=== PATIENT | female | born 1945 | race Caucasian/White ===

== ENCOUNTER 2017-02-07 07:58 | Inpatient (IN) ==
--- NOTE | 2017-02-06 21:21 | Discharge Summary ---
<Shanell Wagner E - Last Filed: 02/07/17 19:41> Date of Encounter: 02/07/17 - Discharge Diagnosis (1) Rotator cuff tear arthropathy of right shoulder Priority: Primary Status: Acute (2) Ulcerative colitis Priority: Secondary Status: Chronic Qualifiers: Ulcerative colitis location: unspecified ulcerative colitis location Digestive disease complication type: without complication Qualified Code(s): K51.90 - Ulcerative colitis, unspecified, without complications (3) Osteoporosis Priority: Secondary Status: Chronic Qualifiers: Osteoporosis type: unspecified Presence of current pathological fracture: unspecified Qualified Code(s): M81.0 - Age-related osteoporosis without current pathological fracture - Discharge Medications Prescriptions: HYDROmorphone [Dilaudid] 0.5 - 1 mg PO Q4HR PRN #20 tablet PRN Reason: Pain Ondansetron HCl 4 - 8 mg PO Q8HR PRN #20 tablet PRN Reason: Nausea And Vomiting Acetaminophen [Tylenol Arthritis] 650 mg PO Q4-6H PRN #20 tablet.er PRN Reason: Pain Home Medications: ALPRAZolam [Xanax 0.5 MG Tablet] 0.5 mg PO BID PRN 10/21/16 [History] Acetaminophen [Tylenol Arthritis] 1,300 mg PO DAILY PRN 10/21/16 [History] Alendronate Sodium [Fosamax] 70 mg PO FR 10/21/16 [History] Calcium Carbonate/Vitamin D3 [Calcium 500+D Tablet Chew] 1 each PO DAILY [History] Gabapentin [Neurontin] 300 mg PO BID 10/21/16 [History] Glucosamine HCl/MSM [Sm Glucosamine & MSM Tablet] 1 tab PO DAILY 10/21/16 [ History] Lactobacillus Acidophilus [Acidophilus Probiotic] 1 mg PO DAILY 10/21/16 [ History] Mesalamine [Lialda] 1.2 gm PO BID 10/21/16 [History] Zolpidem [Ambien] 10 mg PO HS PRN 10/21/16 [History] OxyCODONE Immed Rel [Roxicodone 5 MG] 5 - 10 mg PO Q6HR PRN #40 tablet 02/06/17 [Rx] Acetaminophen [Tylenol Arthritis] 650 mg PO Q4-6H PRN #20 tablet.er 02/07/17 [Rx ] HYDROmorphone [Dilaudid] 0.5 - 1 mg PO Q4HR PRN #20 tablet 02/07/17 [Rx] Ondansetron HCl 4 - 8 mg PO Q8HR PRN #20 tablet 02/07/17 [Rx] Allergies/Adverse Reactions: Allergies acetaminophen [From Vicodin] Adverse Reaction (Verified 02/07/17 08:54) Rash codeine Adverse Reaction (Verified 02/07/17 08:54) Nausea denosumab [From Prolia] Adverse Reaction (Verified 02/07/17 08:54) Chest Pain hydrocodone [From Vicodin] Adverse Reaction (Verified 02/07/17 08:54) Rash Oxycodone [From Percocet] Adverse Reaction (Verified 02/07/17 08:54) Nausea tramadol [From Ultram] Adverse Reaction (Verified 02/07/17 08:54) Nausea Primary care physician: Jere Vega, - Patient Status Disposition: Home, Self-Care Condition: Good - Discharge Instructions Follow Up With: Tri Ulloa PAC [Physician Composition Stone Applicator] - 02/17/17 1:45 pm Jere Vega MD [Primary Care Provider] - Additional Instructions: Discharge Instructions: Total Shoulder Please call [facility] ([phone]), your Primary Care Physician, or report to the Emergency Room if you have any of the following symptoms: Nausea, vomiting, fever greater that 101.5, swelling, chest pain, shortness of breath, increased pain/redness/drainage/odor for your incision site, numbness/ tingling, or any other concerning symptoms. ACTIVITY: Always keep your arm in the sling. Do not raise your arm away from your body. Do not use your arm to help with getting in or out of bed. No weight bearing permitted. Only perform those exercises given to you by your therapist. MEDICATIONS: Upon discharge resume your home medications. Take all the medications as prescribed. Take a stool softener if taking narcotic pain medications. Stool softeners are only effective if you drink enough fluids. Drink 6-8 glass of water or fluids a day, unless this is not allowed for another health problem. Despite using stool softeners, if you haven't had a bowel movement in 3 days, please switch to a gentle laxative. Gentle laxatives are sold over the counter. You should have a bowel movement within 24 hours, if not call the office. You will be discharged from the hospital with a prescription for pain medication. You are encouraged to decrease the use of narcotic pain medication as tolerated. Should you require a refill, please call the office. [facility] prescribes narcotic pain medication for only 4-6 weeks after surgery. If you require pain medication beyond this time period, you may be referred to your Primary Care Physician or to the Pain Clinic for further evaluation. Plan ahead for refills on pain medication as many narcotics either need to be picked up at the office or mailed. It is best to call 48-72 hours in advance of needing a prescription refill so you don't run out of medication. To help control the post-operative pain, you may take NSAIDs (Aleve,Advil, Motrin, Ibuprofen, Naprosyn) or Tylenol as prescribed on the bottle in addition to the pain medication. WOUND CARE: Leave the dressing on for 7-10 days. You may change the dressing if it becomes saturated greater than 50%. Do not get the dressing wet at anytime. Wash your hands with antibacterial soap, rinse and dry prior to any wound care. If you have alfonso the visiting nurse or rehab facility can remove the stapes 10-14 days after surgery and place steri-strips across the wound. Leave the steri-strips in place until they fall off on their own. You may let water from the shower run on top of the steri-strips. If you do not have a visiting nurse or rehab facility, you will need to return to the office at 10-14 days for the alfonso to be removed. If you have itching or redness around the dressing call the office. FOLLOW-UP: Please follow up with your surgeon in the orthopedic clinic, as scheduled - Hospital Course Hospital course: Ms. Tapia is a 72 year old female - Time Spent with Patient Total time spent providing and/or coordinating discharge services: <Slim Hill - Last Filed: 02/08/17 06:47> Date of Encounter: 02/08/17 Time of Encounter: 06:46 - Discharge Diagnosis (1) Rotator cuff tear arthropathy of right shoulder Priority: Primary Status: Acute (2) Ulcerative colitis Priority: Secondary Status: Chronic Qualifiers: Ulcerative colitis location: unspecified ulcerative colitis location Digestive disease complication type: without complication Qualified Code(s): K51.90 - Ulcerative colitis, unspecified, without complications (3) Osteoporosis Priority: Secondary Status: Chronic Qualifiers: Osteoporosis type: unspecified Presence of current pathological fracture: unspecified Qualified Code(s): M81.0 - Age-related osteoporosis without current pathological fracture (4) Status post total replacement of right shoulder Priority: Primary Status: Acute Primary care physician: Jere Vega, - Patient Status Functional capacity at discharge: uses cane/walker Overall status at discharge: patient is progressing back to baseline - Hospital Course Hospital course: Ms. Tapia is a 72 year old female Status post right total shoulder replacement. The patient had an uneventful postoperative course. They received antibiotics and physical therapy and were discharged in stable condition. There will follow-up in the office in 2 weeks. Patient had issues with medication due to multiple narcotic allergies - Time Spent with Patient Total time spent providing and/or coordinating discharge services:
--- NOTE | 2017-02-06 21:26 | Physician Discharge Referral ---
Home Health/Hosp Referral Info Transfer to: Home Health Attending Provider: Dr. Slim Hill - Diagnosis (1) Status post total replacement of right shoulder Priority: Primary Status: Acute (2) Rotator cuff tear arthropathy of right shoulder Priority: Secondary Status: Chronic (3) Ulcerative colitis Priority: Secondary Status: Chronic (4) Osteoporosis Priority: Secondary Status: Chronic - Respiratory Orders Smoking Cessation: Smoking cessation has been advised. For more information, call the [employer] Tobacco Quit Line at 8-446-YCHS-NOW. - Dressing/Wound Care Site: Right shoulder Type of Dressing/Treatments w/Frequency: Opsite placed. Keep dressing intact until first follow up appointment. If > 50% saturated,notify offfice, remove dressing and place appropriate dressing back in place. Dressing is water resistant, not water-proof. OK to shower, but do not get dressing wet. - Diet/Nutrition Diet/Nutrition Orders: Regular - Activity Activity Orders: Ambulate - Services Needed Following services are medically necessary services: Physical Therapy, Occupational Therapy Other Treatments: PT/OT. NWB to affected upper extremity. Follow Shoulder Precautions x 6 weeks. Stay in brace during activity and at night. Remove brace during exercises. ICE and elevate extremity frequently throughout the day. - Transfer Medications Prescriptions: HYDROmorphone [Dilaudid] 0.5 - 1 mg PO Q4HR PRN #20 tablet PRN Reason: Pain Ondansetron HCl 4 - 8 mg PO Q8HR PRN #20 tablet PRN Reason: Nausea And Vomiting Acetaminophen [Tylenol Arthritis] 650 mg PO Q4-6H PRN #20 tablet.er PRN Reason: Pain Home Medications: ALPRAZolam [Xanax 0.5 MG Tablet] 0.5 mg PO BID PRN 10/21/16 [History] Acetaminophen [Tylenol Arthritis] 1,300 mg PO DAILY PRN 10/21/16 [History] Alendronate Sodium [Fosamax] 70 mg PO FR 10/21/16 [History] Calcium Carbonate/Vitamin D3 [Calcium 500+D Tablet Chew] 1 each PO DAILY [History] Gabapentin [Neurontin] 300 mg PO BID 10/21/16 [History] Glucosamine HCl/MSM [Sm Glucosamine & MSM Tablet] 1 tab PO DAILY 10/21/16 [ History] Lactobacillus Acidophilus [Acidophilus Probiotic] 1 mg PO DAILY 10/21/16 [ History] Mesalamine [Lialda] 1.2 gm PO BID 10/21/16 [History] Zolpidem [Ambien] 10 mg PO HS PRN 10/21/16 [History] OxyCODONE Immed Rel [Roxicodone 5 MG] 5 - 10 mg PO Q6HR PRN #40 tablet 02/06/17 [Rx] Acetaminophen [Tylenol Arthritis] 650 mg PO Q4-6H PRN #20 tablet.er 02/07/17 [Rx ] HYDROmorphone [Dilaudid] 0.5 - 1 mg PO Q4HR PRN #20 tablet 02/07/17 [Rx] Ondansetron HCl 4 - 8 mg PO Q8HR PRN #20 tablet 02/07/17 [Rx] Allergies/Adverse Reactions: Allergies acetaminophen [From Vicodin] Adverse Reaction (Verified 02/07/17 08:54) Rash codeine Adverse Reaction (Verified 02/07/17 08:54) Nausea denosumab [From Prolia] Adverse Reaction (Verified 02/07/17 08:54) Chest Pain hydrocodone [From Vicodin] Adverse Reaction (Verified 02/07/17 08:54) Rash Oxycodone [From Percocet] Adverse Reaction (Verified 02/07/17 08:54) Nausea tramadol [From Ultram] Adverse Reaction (Verified 02/07/17 08:54) Nausea Certification: Further, I certify that my clinical findings support that this patient is homebound (i.e. absences from home require considerable and taxing effort and are for medical reasons or cheondoism services or infrequently or short duration when for other reasons) because: Homebound Reason: Post-surgery restriction and or conditions limit ability to leave home Attestation: My signature below is to certify that this patient is under my care and that I, or nurse practitioner, or physician senior office support assistant sosa working with me, has a face-to- face encounter with this patient.
[2017-02-07] MEDS ORDERED: Lidocaine -MPF 1% 2 ML VIAL ID ONE (08:12)
[2017-02-07] MEDS ORDERED: CeFAZolin Pre 2,000 MG/100 ML 2,000 MG/100 ML BAG IVPB ONE (08:12)
[2017-02-07] MEDS ORDERED: Ringers Solution, Lactated 1,000 ML IVC SCH ×2 (08:15→11:59)
--- NOTE | 2017-02-07 08:39 | History & Physical Report ---
Date of Encounter: 02/07/17 Time of Encounter: 08:39 24 Hour HP Update - Instructions Instructions: If the History and Physical is less than 30 days old and was completed prior to A.M. admission and or procedure and has NOT been updated on calendar day of procedure please complete this update prior to performing procedure. - Update Patient reports changes in Medical Condition: No Changes in examination, assessment, or condition: No Changes in Medication: No Preop tests/diagnostics Reviewed: Yes Surgery Remains Indicated: Yes Consent for Planned Operative Procedure(s) Verified: Yes - Pre-Operative Checklist Preoperative Checklist Indicated: No Prophylactic Antibiotic Ordered: Yes Is VTE Prophylaxis Indicated?: Yes
[2017-02-07] MEDS ORDERED: Famotidine 20 MG/2 ML VIAL IVP ONE (08:51)
[2017-02-07] MEDS ORDERED: Gabapentin 300 MG CAPSULE PO ONE (08:52)
[2017-02-07] MEDS ORDERED: *HR* FentaNYL (PF) 100 MCG/2 ML VIAL ONE (08:54)
[2017-02-07] MEDS ORDERED: *HR* Succinylcholine 200 MG/10 ML VIAL IVP ONE (08:54)
[2017-02-07] MEDS ORDERED: Ondansetron 4 MG/2 ML VIAL ONE (08:54)
[2017-02-07] MEDS ORDERED: *HR* Propofol 200 MG/20 ML VIAL IVP ONE (08:54)
[2017-02-07] MEDS ORDERED: Lidocaine -MPF 2% 2 ML VIAL ONE (08:54)
--- NOTE | 2017-02-07 09:24 | Anesthesia Evaluation PreOp ---
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 (LE Neuropathy) Other Medical History: Other (Colitis) Anesthesia History: No Prior Anesthetic Complications : No Alcohol Use: none Drug use: none Medications and Allergies ALPRAZolam [Xanax 0.5 MG Tablet] 0.5 mg PO BID PRN 10/21/16 [History] Acetaminophen [Tylenol Arthritis] 1,300 mg PO DAILY PRN 10/21/16 [History] Alendronate Sodium [Fosamax] 70 mg PO FR 10/21/16 [History] Calcium Carbonate/Vitamin D3 [Calcium 500+D Tablet Chew] 1 each PO DAILY [History] Gabapentin [Neurontin] 300 mg PO BID 10/21/16 [History] Glucosamine HCl/MSM [Sm Glucosamine & MSM Tablet] 1 tab PO DAILY 10/21/16 [ History] Lactobacillus Acidophilus [Acidophilus Probiotic] 1 mg PO DAILY 10/21/16 [ History] Mesalamine [Lialda] 1.2 gm PO BID 10/21/16 [History] Zolpidem [Ambien] 10 mg PO HS PRN 10/21/16 [History] OxyCODONE Immed Rel [Roxicodone 5 MG] 5 - 10 mg PO Q6HR PRN #40 tablet 02/06/17 [Rx] Allergies acetaminophen [From Vicodin] Adverse Reaction (Verified 02/07/17 08:54) Rash codeine Adverse Reaction (Verified 02/07/17 08:54) Nausea denosumab [From Prolia] Adverse Reaction (Verified 02/07/17 08:54) Chest Pain hydrocodone [From Vicodin] Adverse Reaction (Verified 02/07/17 08:54) Rash Oxycodone [From Percocet] Adverse Reaction (Verified 02/07/17 08:54) Nausea tramadol [From Ultram] Adverse Reaction (Verified 02/07/17 08:54) Nausea - Meds/Allergy Pre-op Review Medications Reviewed: Yes Allergies Reviewed: Yes Beta Blockers on Current Med List: No Anesthesia Results - Labs Laboratory Tests 02/04/17 02/04/17 12:15 12:15 Hgb 13.1 Hct 40.3 Plt Count 271 Sodium 138 Potassium 4.3 BUN 9 Creatinine 0.82 Anesthesia Exam O2 Sat Height 1.52 m Height 1.52 m Height 1.52 m Weight 44.906 kg Weight 44.906 kg Weight 44.906 kg O2 Sat by Pulse Oximetry 100 Vital Signs Temp Pulse Resp BP Pulse Ox 98.2 F 73 18 134/72 100 02/07/17 08:18 02/07/17 08:18 02/07/17 08:18 02/07/17 08:18 02/07/17 08:18 Height: 5'0 Weight: 100 lbs NPO (# of Hours): MN Pain Scale: 0 - HEENT Pupil (Motor): Pupils equal, EOMI Mallampati: II Teeth: Normal Oral Opening: Greater than 3 - CAR DESIGNER LOC: Oriented CAR DESIGNER Motor: Normal RUE, Normal LUE, Normal RLE, Normal LLE, Normal Face CAR DESIGNER Sensory: Normal: RUE, LUE, RLE, LLE, Face - Cardiac Rhythm: Regular Murmur: None JVD: No Carotid Bruit: No - Pulmonary Breath Sounds: bilateral Clear Respiratory Effort: Symmetrical Anesthesia Assess/Plan ASA Score: 2 Modified Edmonds Scale for Level of Consciousness: Cooperative, oriented, and tranquil Anesthetic Plan: General, Regional Monitoring Plan: Standard Monitors Recovery Plan: PACU (Discussed GA and RA, agrees to proceed)
[2017-02-07] MEDS ORDERED: ROPIVACAINE HCL/PF 0.5% 30 ML VIAL ONE (09:40)
[2017-02-07] MEDS ORDERED: Bupivacaine-MPF 0.25% 10 ML VIAL ONE (09:40)
--- NOTE | 2017-02-07 09:59 | Anesthesia Procedures ---
Date of Encounter: 02/07/17 Time of Encounter: 09:56 Procedures: Anesthesia - Nerve Block Procedure Date: 02/07/17 Time: 09:57 Allergies/Adv Reactions: acetaminophen [From Vicodin] Adverse Reaction (Verified 02/07/17 08:54) Rash codeine Adverse Reaction (Verified 02/07/17 08:54) Nausea denosumab [From Prolia] Adverse Reaction (Verified 02/07/17 08:54) Chest Pain hydrocodone [From Vicodin] Adverse Reaction (Verified 02/07/17 08:54) Rash Oxycodone [From Percocet] Adverse Reaction (Verified 02/07/17 08:54) Nausea tramadol [From Ultram] Adverse Reaction (Verified 02/07/17 08:54) Nausea Pre-op Diagnosis: right rotator cuff tear Surgical Procedure: right shoulder scope Checklist: Correct Patient Identifier Blood Thinner: No Monitor Applied: EKG, BP, Pulse Oximetry Supplemental Oxygen via Nasal Cannula (L/min): 2 Sedation: Fentanyl (mcg): 100 Indication: Post Op Analgesia Block Type: Interscalene Sterile Technique: Yes Ultrasound used: Yes Anatomy identified: Yes Visual spread of Local: Yes Blood on Needle Aspiration: No Smooth Injection of Local: Yes Pain with Injection of Local: No Prep: Chlorhexadine Needle: 22 x 50 mm Stimuplex Local: Ropivacaine (0.5%) Volume (cc): 20 Number of Attempts: 1 Complications: None/effective block
[2017-02-07] MEDS ORDERED: EPHEDrine 50 MG/ML VIAL ONE (10:23)
[2017-02-07] MEDS ORDERED: *HR* FentaNYL (PF) 100 MCG/2 ML VIAL IVP PRN (10:27)
[2017-02-07] MEDS ORDERED: Lidocaine -MPF 4% 5 ML AMPUL ONE (10:34)
[2017-02-07] MEDS ORDERED: Dexamethasone 4 MG/ML VIAL ONE (10:34)
--- NOTE | 2017-02-07 10:51 | Orthopedic Operative Note ---
Date of procedure: 02/07/17 Pre-op diagnosis: Right shoulder cuff tear arthropathy Post-op diagnosis: same Procedure: Procedure: Right Total Shoulder Replacment Reverse, Estimated blood loss: 100 cc Hardware: Metal and polyethylene replacement: Arthrex medium glenoid baseplate , 2 4.5 screws. 1 6.5 screw, 39+4 glenosphere, 7 humeral stem, poly insert 3 Exam Under anesthesia: Full motion and no instability Procedural Notes:Complete tear with retraction irreparable Operative procedure: The patient was brought to the operating room and placed on the operating room table. After general anesthesia was administered the operative shoulder was examined. Findings were noted. The patient was placed in the modified beachchair position. All pressure points were padded appropriately. And the head was stabilized in the neutral position. The operative extremity was prepped and draped in the sterile surgical fashion. The patient received IV antibiotics prior to skin incision. A standard deltopectoral approach was made to the operative shoulder. Incision was made to the skin and subcutaneous tissue,hemo stasis was obtained with Bovie cautery. Using careful blunt dissection the cephalic vein was identified and mobilized medially. The deltopectoral interval was developed and the clavipectoral fascia was incised. The subscap was released off the lesser tuberosity and tagged with #2 FiberWire suture subscap was irreparable. The humerus was dislocated patient noted to have irreparable tear supraspinatus tendon, and the humeral cut was made along the anatomic neck. Anterior and posterior Bankart retractors were placed to expose the glenoid. The glenoid guide was seated and the centering hole was made. It was reamed with the appropriate reamer. The median baseplate was seated and secured with (2) 4.5 screws and one 6.5 screw. The baseplate was irrigated and dried and the 39+4 Glenosphere was seated and secured with the Jaquez taper. The Jaquez taper was tested and found to be secure the humerus was redislocated and prepared with the diaphyseal reamers, followed by a broaching process up to the appropriate size X in the patient's anatomic version. The metaphyseal reamer was then utilized. Trial reduction found the shoulder to be relocatable. Trial components were removed. The appropriate 7 stem was impacted in place in the patient's anatomic version. Trial reduction found the shoulder to be relocatable and stable with the appropriate 3 Trial component was removed and the real implant was seated and secured the shoulder was reduced. The shoulder had excellent motion and excellent stability and no evidence of dislocation. The deep tissue was irrigated with pulse irrigation. The shoulder was closed by the CONNIE Wagner The deltopectoral interval was closed with a running #1 PDS suture, subcutaneous tissue was irrigated and closed with 0 PDS suture, the skin was closed with Dermabond. The patient was placed in a sterile dressing, abduction brace and extubated. The patient was then transferred to the recovery room in stable condition. Anesthesia: FAISAL Surgeon: Slim Hill Condition: stable Disposition: PACU
[2017-02-07 11:21] LABS: Hematocrit 38.9 % (35.3-44.9); Hemoglobin 12.4 g/dL (11.5-15.4)
--- NOTE | 2017-02-07 11:34 | Anesthesia Evaluation Post Op ---
Date of Encounter: 02/07/17 Time of Encounter: 11:35 - Vital Signs Vital Signs: Vital Signs/O2 Sat/Glucose, Most Current Temp Pulse Resp BP Pulse Ox 02/07/17 11:25 77 16 130/94 98 02/07/17 11:15 81 16 142/81 97 02/07/17 11:05 97.1 F L 89 16 141/86 100 02/07/17 09:56 72 16 142/81 100 02/07/17 09:42 74 16 157/84 100 02/07/17 08:18 98.2 F 73 18 134/72 100 - Lungs Lungs: Clear Ascult./Percussion - Airway Airway: Non-obstructed - Cardiovascular Regular Rate - Mental Status Mental Status: Alert & Oriented, Answers Appropriately - Pain Pain Scale: 0 - Nausea Vomiting Nausea Vomiting: Not Present - Hydration Hydration: Ice chips - Discharge PostOp Status: Transfer Patient to floor
[2017-02-07] MEDS ORDERED: Ondansetron 4 MG/2 ML VIAL IVP PRN (11:59)
[2017-02-07] MEDS ORDERED: traMADol 50 MG TABLET PO PRN (11:59)
[2017-02-07] MEDS ORDERED: Naloxone 0.4 MG/ML INJ IVP PRN (11:59)
[2017-02-07] MEDS ORDERED: *HR* HYDROcodone/Acet 5/325 mg TABLET PO PRN (11:59)
[2017-02-07] MEDS ORDERED: *HR* HYDROmorphone (PF) 1 MG/ML SYRINGE IVP PRN (11:59)
[2017-02-07] MEDS ORDERED: Temazepam 15 MG CAPSULE PO PRN (11:59)
[2017-02-07] MEDS ORDERED: MOM Conc 10 ML UD.LIQ PO PRN (11:59)
[2017-02-07] MEDS ORDERED: ALPRAZolam 0.5 MG TABLET PO PRN (11:59)
[2017-02-07] MEDS ORDERED: Sennosides 8.6 MG TABLET PO PRN (11:59)
[2017-02-07] MEDS: ceFAZolin 2,000 MG in D5% in Water 100 ML IVPB SCH (16:02)
[2017-02-07] MEDS: *HR* Enoxaparin 30 MG/0.3 ML SYRINGE SQ SCH (17:19)
[2017-02-07] MEDS ORDERED: *HR* HYDROmorphone 2 MG TABLET PO ONE (17:49)
[2017-02-07] MEDS ORDERED: *HR* HYDROmorphone (PF) 1 MG/ML SYRINGE IVP ONE (17:55)
[2017-02-07] MEDS ORDERED: *HR* Enoxaparin 30 MG/0.3 ML SYRINGE SQ SCH ×2 (18:00)
[2017-02-07] MEDS ORDERED: tiZANidine 4 MG TABLET PO PRN (19:39)
[2017-02-07] MEDS: Acetaminophen 325 MG TABLET PO PRN (21:52)
[2017-02-07] MEDS: Gabapentin 300 MG CAPSULE PO SCH (21:53)
[2017-02-07] MEDS: Mesalamine 250 MG CAPSULE.ER PO SCH (22:56)
[2017-02-08] MEDS: ceFAZolin 2,000 MG in D5% in Water 100 ML IVPB SCH (00:53)
[2017-02-08] MEDS: *HR* HYDROmorphone (PF) 1 MG/ML SYRINGE IVP PRN ×2 (00:53→05:15)
[2017-02-08] MEDS: *HR* Enoxaparin 30 MG/0.3 ML SYRINGE SQ SCH (05:16)
--- NOTE | 2017-02-08 06:48 | Orthopedics Progress Note ---
Date of Encounter: 02/08/17 Time of Encounter: 06:47 - Assessment and Plan (1) Rotator cuff tear arthropathy of right shoulder Current Visit: Yes Status: Acute (2) Ulcerative colitis Current Visit: Yes Status: Chronic Qualifiers: Ulcerative colitis location: unspecified ulcerative colitis location Digestive disease complication type: without complication Qualified Code(s): K51.90 - Ulcerative colitis, unspecified, without complications (3) Osteoporosis Current Visit: Yes Status: Chronic Qualifiers: Osteoporosis type: unspecified Presence of current pathological fracture: unspecified Qualified Code(s): M81.0 - Age-related osteoporosis without current pathological fracture (4) Status post total replacement of right shoulder Current Visit: Yes Status: Acute Subjective Interval history: Patient was seen this morning doing well without complaints. Afebrile vital signs stable. Operative extremity: Neurovascularly intact Dressing clean dry and intact Calves nontender Assessment and plan: Continue with postoperative care Hematocrit 38 discharged today Objective Vital signs: Vital Signs Temp Pulse Resp BP Pulse Ox 02/08/17 03:30 98.5 F 71 16 141/72 96 02/07/17 23:30 98.6 F 73 16 135/64 95 02/07/17 19:09 97.8 F 71 16 130/69 99 02/07/17 15:00 97.6 F 78 14 127/63 98 02/07/17 13:55 97.7 F 78 16 125/60 99 02/07/17 13:00 97.6 F 74 17 138/66 99 02/07/17 12:15 97.6 F 76 14 99 02/07/17 11:50 97.6 F 66 12 141/73 100 02/07/17 11:35 97.1 F L 72 16 123/78 96 02/07/17 11:25 77 16 130/94 98 02/07/17 11:15 81 16 142/81 97 02/07/17 11:05 97.1 F L 89 16 141/86 100 02/07/17 09:56 72 16 142/81 100 02/07/17 09:42 74 16 157/84 100 02/07/17 08:18 98.2 F 73 18 134/72 100 Intake and Output 02/07/17 02/07/17 02/08/17 15:59 23:59 07:59 Intake Total 100 / 100 100 / 100 Output Total 500 / 500 200 / 200 Balance -400 / -400 -100 / -100 Intake: IV Fluids 100 / 100 100 / 100 Ancef Premix 2,000 MG/100 100 / 100 ML 2,000 mg In 100 ml @ 200 mls/hr IVPB PREOP ONE Rx#:[id number] Ancef 2,000 MG In 100 / 100 Dextrose 5% 100 ML @ 200 mls/hr IVPB Q8HR TREMAINE Rx#: [id number] Oral 0 / 0 Output: Urine 400 / 400 200 / 200 Estimated Blood Loss 100 / 100 Other: Weight 44.906 kg 52.7 kg Patient Weight 02/08/17 23:59 Weight 52.7 kg - Labs CBC & BMP: 02/07/17 11:13 - VTE Documentation of Mechanical Device: Venous foot pump, device Consult Discharge Plan - Plan Additional Instructions: Discharge Instructions: Total Shoulder Please call [facility] ([phone]), your Primary Care Physician, or report to the Emergency Room if you have any of the following symptoms: Nausea, vomiting, fever greater that 101.5, swelling, chest pain, shortness of breath, increased pain/redness/drainage/odor for your incision site, numbness/ tingling, or any other concerning symptoms. ACTIVITY: Always keep your arm in the sling. Do not raise your arm away from your body. Do not use your arm to help with getting in or out of bed. No weight bearing permitted. Only perform those exercises given to you by your therapist. MEDICATIONS: Upon discharge resume your home medications. Take all the medications as prescribed. Take a stool softener if taking narcotic pain medications. Stool softeners are only effective if you drink enough fluids. Drink 6-8 glass of water or fluids a day, unless this is not allowed for another health problem. Despite using stool softeners, if you haven't had a bowel movement in 3 days, please switch to a gentle laxative. Gentle laxatives are sold over the counter. You should have a bowel movement within 24 hours, if not call the office. You will be discharged from the hospital with a prescription for pain medication. You are encouraged to decrease the use of narcotic pain medication as tolerated. Should you require a refill, please call the office. [facility] prescribes narcotic pain medication for only 4-6 weeks after surgery. If you require pain medication beyond this time period, you may be referred to your Primary Care Physician or to the Pain Clinic for further evaluation. Plan ahead for refills on pain medication as many narcotics either need to be picked up at the office or mailed. It is best to call 48-72 hours in advance of needing a prescription refill so you don't run out of medication. To help control the post-operative pain, you may take NSAIDs (Aleve,Advil, Motrin, Ibuprofen, Naprosyn) or Tylenol as prescribed on the bottle in addition to the pain medication. WOUND CARE: Leave the dressing on for 7-10 days. You may change the dressing if it becomes saturated greater than 50%. Do not get the dressing wet at anytime. Wash your hands with antibacterial soap, rinse and dry prior to any wound care. If you have alfonso the visiting nurse or rehab facility can remove the stapes 10-14 days after surgery and place steri-strips across the wound. Leave the steri-strips in place until they fall off on their own. You may let water from the shower run on top of the steri-strips. If you do not have a visiting nurse or rehab facility, you will need to return to the office at 10-14 days for the alfonso to be removed. If you have itching or redness around the dressing call the office. FOLLOW-UP: Please follow up with your surgeon in the orthopedic clinic, as scheduled Referrals: Tri Ulloa PAC [Physician [employer]] - 02/17/17 1:45 pm Jere Vega MD [Primary Care Provider] - Prescriptions: Acetaminophen [Tylenol Arthritis] 650 mg PO Q4-6H PRN #20 tablet.er PRN Reason: Pain HYDROmorphone [Dilaudid] 0.5 - 1 mg PO Q4HR PRN #20 tablet PRN Reason: Pain Ondansetron HCl 4 - 8 mg PO Q8HR PRN #20 tablet PRN Reason: Nausea And Vomiting
[2017-02-08 07:24] VITALS: BP 120/63
[2017-02-08 07:34] LABS: Hematocrit 34.9 % (35.3-44.9); Hemoglobin 11.1 g/dL (11.5-15.4)
[2017-02-08] MEDS: Gabapentin 300 MG CAPSULE PO SCH (08:20)
[2017-02-08] MEDS: Mesalamine 250 MG CAPSULE.ER PO SCH (08:20)
[2017-02-08] MEDS: Acetaminophen 325 MG TABLET PO PRN ×2 (08:24→12:50)
[2017-02-08] MEDS ORDERED: GLUCOSAMINE HCL PO SCH (09:00)
[2017-02-08] MEDS ORDERED: Cholecalciferol (D-3) 1,000 UNIT TABLET PO SCH (09:00)
[2017-02-08] MEDS ORDERED: MSM PO SCH (09:00)
[2017-02-08] MEDS ORDERED: Lactobacillus 1 EACH CAP.SPRINK PO SCH (09:00)
[2017-02-11] MEDS ORDERED: NON-FORMULARY MEDICATION 1 EACH EACH (Alendronate Sodium [Fosamax] 70 MG) PO SCH (09:16)
== END 2017-02-08 12:51 | disposition home or self-care (01) | DRG 483 ==
LOC: SAMDAY 07:58 → 3NENU 11:44
PROVIDERS: ADMIT Orthopaedic Surgery; ATTEND Orthopaedic Surgery